=== PATIENT | female | born 1980 | race Caucasian/White ===

== ENCOUNTER 2018-04-21 18:51 | Emergency (ER) | payer OTHER ==
[~2018-04-21] VITALS: Ht 162.6 cm; Wt 63.5 kg
[2018-04-21 18:55] VITALS: BP 140/90
--- NOTE | 2018-04-21 19:23 | ED HAND/WRIST INJURY COMPLAINT ---
History of Present Illness General Chief Complaint: Laceration Procedure Stated Complaint: L THUMB LAC Source: patient Exam Limitations: no limitations Vital Signs & Intake/Output Vital Signs & Intake/Output Vital Signs Date Time Temp Pulse Resp B/P B/P Pulse O2 O2 Flow FiO2 Mean Ox Delivery Rate 04/21 1855 97.6 93 18 140/90 97 Room Air ED Intake and Output 04/22 0000 07 1200 Intake Total Output Total Balance Patient 140 lb Weight Weight Reported by Patient Measurement Method Allergies Coded Allergies: cephalexin (From KEFLEX) (RASH 04/21/18) Triage Note: PT STATES SHE CUT HER LEFT THUMB WITH A KNIFE WHILE COOKING. Triage Nurses Notes Reviewed? yes Occurred: just prior to arrival Duration: minute(s): Timing: single episode today Injury Environment: home Severity: moderate, severe Pain/Injury Location: Left: 1st finger. Method of Injury: laceration No Modifying Factors: none : No Patient currently breastfeeds: No HPI: 37-year-old female comes into the emergency room for further evaluation of laceration to left thumb. Patient reports that she was cutting mushrooms up when she sliced her thumb by accident. Subsequently bleeding. She reports that she is in significant pain. She reports that she does not do well with blood and needles. Tetanus shot is up-to-date. (William Barth) Past History Travel History Traveled to [place] past 21 day No Medical History Any Pertinent Medical History? none Surgical History Surgical History: non-contributory Psychosocial History What is your primary language Italian Tobacco Use: Never used ETOH Use: occasional use Illicit Drug Use: denies illicit drug use Family History Hx Contributory? No (William Barth) Review of Systems Review of Systems Constitutional: Reports: no symptoms. EENTM: Reports: no symptoms. Respiratory: Reports: no symptoms. Cardiovascular: Reports: no symptoms. GI: Reports: no symptoms. Genitourinary: Reports: no symptoms. Musculoskeletal: Reports: see HPI. Skin: Reports: see HPI. Neurological/Psychological: Reports: no symptoms. Hematologic/Endocrine: Reports: no symptoms. Immunologic/Allergic: Reports: no symptoms. All Other Systems: Reviewed and Negative (William Barth) Physical Exam Physical Exam General Appearance: well developed/nourished, mild distress Head: atraumatic Eyes: Bilateral: normal appearance. Ears, Nose, Throat: normal ENT inspection, hearing grossly normal Neck: normal inspection Cardiovascular/Respiratory: no respiratory distress Back: normal inspection Hand Left: sub 0.5 cm lacerationto distal first phalanx, Hand Right: normal inspection Neurologic/Tendon: normal sensation, normal motor functions, normal tendon functions, responds to pain, no evidence tendon injury, no pulse deficit Skin: intact, normal color, warm/dry Lymphatic: no anterior cervical wilian (William Barth) Progress Differential Diagnosis: sprain, tendon laceration, foreign body, open tuft fracture, Plan of Care: 04/21/2018 7:54:35 PM Patient clinically looks well. She tolerated procedure. Return if any other concerns. Tetanus up-to-date. (William Barth) Departure Departure Disposition: HOME OR SELF CARE Condition: Stable Clinical Impression Primary Impression: Finger laceration Referrals: Teresita Cabello MD (PCP/Family) Additional Instructions: Return if any concerns worsening symptoms. Watch for signs of infection such as redness on discharge fever chills. Do not get wet for 5 days. Let Steri-Strips and Dermabond follow-up on her own. Please go over all results of today's visit with your primary care doctor. Contact your primary care doctor to let them know you were here in the emergency room. There may be nonspecific findings which may not be related to your visit today here in the emergency room but may require further evaluation and chronic monitoring by your primary care doctor. If you had a laceration today the chance of foreign body always remains. You should follow-up with your primary care doctor for recheck in 3-5 days for a wound check. If you had an x-ray done there is a chance that a fracture could have been missed on initial read and you should follow-up with your primary care doctor for repeat x-rays if symptoms persist. If your blood pressure was elevated here in the emergency room please have rechecked by [facility] primary care doctor within the next 48. If you were prescribed a narcotic here in the emergency room or any type of controlled substances you're not allowed to drive while taking this medication or operate any type of heavy machinery. Narcotics can make you feel lightheaded dizziness nausea and can cause constipation. You may need to steel pickler a stool softener. Thank you for choosing [facility] emergency room. Please return to the emergency room immediately if you have any other concerns worsening of symptoms. Departure Forms: Customer Survey General Discharge Information (William Barth) PA/GUSSET RIPPER Co-Sign Statement Statement: ED Attending supervision documentation- [] I saw and evaluated the patient. I have also reviewed all the pertinent lab results and diagnostic results. I agree with the findings and the plan of care as documented in the PA's/GUSSET RIPPER's documentation. [x] I have reviewed the ED Record and agree with the PA's/GUSSET RIPPER's documentation. [] Additions or exceptions (if any) to the PAs/GUSSET RIPPER's note and plan are summarized below: [] (Sanju SAAB,Asad Alegria) Procedures Laceration/Wound Repair Progress: Sub 0.5 cm laceration to left first digit, distal phalanx, digital block performed with 1% lidocaine, 4 mL injected, irrigated with peroxide saline and Betadine, Dermabond used to close wound, Steri-Strip placed over it, no need for sutures, no active bleeding and dry sterile dressing placed over (William Barth)
[2018-04-23] MEDS ORDERED: CLARITHROMYCIN500 M1 PO (17:01)
[2018-04-23] MEDS ORDERED: CLEOCIN HCL300 M1 PO (17:45)
== END 2018-04-21 19:25 ==
LOC: ERH 18:51
DX: S61.012A Laceration without foreign body of left thumb without damage to nail, initial encounter (principal); W26.0XXA Contact with knife, initial encounter; Y93.G1 Activity, food preparation and clean up; Y92.009 Unspecified place in unspecified non-institutional (private) residence as the place of occurrence of the external cause
CPT/HCPCS: J2001